=== PATIENT | male | born 1980 | race Two or more races ===

== ENCOUNTER 2019-06-04 22:16 | Emergency (ER) | payer SELFPAY ==
[~2019-06-04] VITALS: Ht 167.6 cm; Wt 81.6 kg
[2019-06-04 22:20] VITALS: BP 128/78
--- NOTE | 2019-06-04 22:20 | NUR ---
ED Nurse Note: Patient brought in by ambulance from [facility] d/t left flank pain 12/04. Patient aao x 4 and ambulatory. Patient stable upon assessment.
--- NOTE | 2019-06-04 22:22 | NUR ---
ED Nurse Note: ERMD at bedside.
[2019-06-04 22:45] VITALS: BP 130/82
--- NOTE | 2019-06-04 22:45 | NUR ---
ER DISCHARGE NOTE: Patient is cleared to be discharged per ERMD, pt is aox4, on room air, with stable vital signs. pt was given dc instructions, declined to sign dc paperwork, pt id band removed. pt is able to ambulate with steady gait. pt took all belongings. pt stable upon discharge.
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
== END 2019-06-04 22:45 | disposition home or self-care (01) ==
LOC: EDBD 22:16 → EMR 22:28
DX: F15.10 Other stimulant abuse, uncomplicated (principal)
CPT/HCPCS: 99281